=== PATIENT | male | born 1960 | race Caucasian/White ===

== ENCOUNTER 2018-01-07 14:06 | Inpatient (IN) | payer OTHER, MEDICARE ==
[~2018-01-07] VITALS: Ht 177.8 cm; Wt 119.8 kg
--- NOTE | 2018-01-07 16:05 | IP CRISIS DIAG ASSESS PSYCH ---
Diagnostic Assessment Basic Assessment Insurance Authorization: Insurance #1: Insurance name: MED[employer] Phone number: Policy number: [id number] Group number: Authorization number: no Auth required Primary Care Physician: Patient's PCP: Unknown PCP's Phone Number: Patient's Quote: "I went to get help instead of taking the pills." Present Illness: Pt is a 57yo male who is directly admitted from [facility]. He presented there seeking help after filling his prescription for 90 pills of klonopin and expressed that he planned to take them all in a suicide attempt, but went to [facility] for help instead. He identified the trigger of his suicidal thoughts as recently going through a foreclosure and his car being repossessed. Upon arrival to [place] pt became agitated because he realized that half of his belongings were left at [facility]. He was yelling, but was able to be deescalated. [facility] was contacted and they confirmed that his belongings were still there. They informed that they are working on a way to have them brought here. As a result, pt had a difficult time participating in the diagnostic and social history assessments, because he was anxious and continually preoccupied about his belongings. Pt continues to endorse suicidal thoughts, but says he feel safe in the hospital. He reports 1 prior inpt psych admit 10 years ago for a suicide attempt by overdosing on his medication. He denies any hx out outpatient psych treatment stating that his PCP has prescribed his psych meds and his medical medications since 1998 when he was diagnosed with Neurosyphilis. Pt also reports that he was diagnosed with Bipolar in 1998. Pt reports that he is on disability for his Neurosyphillis because it has caused short term memory loss. He says in order to remember what happened earlier in the day he has to write it down. "I can't even remember what I had for breakfast this morning." Pt also reports that he has diabetes and glaucoma. Patient's Address: [address] [place] [address] Other Phone Number: Who Do You Live With? Patient/Self Feel Safe Where You Live? Yes Feel Safe in Your Relationship Yes Marital Status: single Do You Have Children? No Primary Language? Venezuelan Language(s) Spoken At Home: Venezuelan Family/Informants Interviewed: no family/collateral ID'd Toxicology Screen Completed? Yes Results: negative Past History Abuse/Trauma History Trauma History/Current Trauma: Denies Legal History Current Legal Status: none Have you ever been arrested? 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 Psychosocial History Strengths/Capabilities: seeking help Physical Limitations (Interventions): none reported Psychiatric Treatment History Psych Treatment Psychiatric Treatment Yes Inpatient Treatment Yes Outpatient Treatment No Location of Treatment [facility] Reason for Treatment Suicide attempt Dates of Treatment 10 years ago Response to Treatment unknown Diagnosis by History: Per Pt bipolar Risk Factors: access to lethal means, chronic/serious med cond., high anxiety/ distress, history of suicide atmpts, SA/MH hospitalized, isolate/no social support, lives alone, male, limited support Substance Use/Abuse History Drug Use/Abuse minimum 12mo Hx Substances Used/Abused No Substance Abuse Treatment Substance Abuse Treatment Past Substance Abuse [place] No Inpatient Treatment No Sexual History Sexually Active No Education History Highest Level of Education: bachelor's degree Preferred Learning Style: visual, auditory, experiential, "I have to see things and write it down" Current Mental Status Mental Status Orientation: Person, Place, Situation Affect: Anxious, Angry, Depressed, Hopeless, Sad Speech: Loud, Perseveration Neuro-vegetative: Anhedonia, Concentration Poor, Energy Decreased, Helpless, Loss of Interest, Sleep Disturbance Appearance Appearance- Dress/Hygiene: fairly groomed, sporadic eye contact Behaviors Thought Process: WNL Thought Content: WNL Memory: Short term memory Insight: Fair SI/HI Risk Assessment - Minimum 6mo History- Past Suicidal Ideation/Attempts Yes Current Suicidal Ideation/Att Yes Past Homicidal Ideation/Att: No Current Homicidal Ideation/Attempts No Needs/Init TX Plan/Goals: Safety and stabilization of sx, individual and group therapy, med eval AUDIT-C Questionnaire: AUDIT-C Questionnaire: Response Value ETOH use in the past year Never 0 # drinks typical/day Doesn't Drink 0 6 or > drinks per occasion Never 0 Total 0 DSM5/PS Stressors/Medical Prob Diagnosis' (DSM 5, Stressors, Medical): F32.9 Unspecified Depression Current GAF: 25 Comments: Neurosyphylis, diabetes, and glaucoma
[2018-01-07 19:54] VITALS: BP 117/59
--- NOTE | 2018-01-07 20:29 | SOCIAL WORKER SOCIAL HX PSYCH ---
Social History Basic Assessment Insurance Authorization: Insurance #1: Insurance name: MEDICARE [employer] Phone number: Policy number: [id number] Group number: Authorization number: Curr Source of Income/Entitlements: [facility] Primary Care Physician: Patient's PCP: Unknown PCP's Phone Number: Present Problem: Pt is a 57yo male who is directly admitted from [facility]. He presented there seeking help after filling his prescription for 90 pills of klonopin and expressed that he planned to take them all in a suicide attempt, but went to [facility] for help instead. He identified the trigger of his suicidal thoughts as recently going through a foreclosure and his car being repossessed. Upon arrival to [place] pt became agitated because he realized that half of his belongings were left at [facility]. He was yelling, but was able to be deescalated. [facility] was contacted and they confirmed that his belongings were still there. They informed that they are working on a way to have them brought here. As a result, pt had a difficult time participating in the diagnostic and social history assessments, because he was anxious and continually preoccupied about his belongings. Pt continues to endorse suicidal thoughts, but says he feel safe in the hospital. He reports 1 prior inpt psych admit 10 years ago for a suicide attempt by overdosing on his medication. He denies any hx out outpatient psych treatment stating that his PCP has prescribed his psych meds and his medical medications since 1998 when he was diagnosed with Neurosyphilis. Pt also reports that he was diagnosed with Bipolar in 1998. Pt reports that he is on disability for his Neurosyphillis because it has caused short term memory loss. He says in order to remember what happened earlier in the day he has to write it down. "I can't even remember what I had for breakfast this morning." Pt also reports that he has diabetes and glaucoma. Primary Language? Cuban Language(s) Spoken At Home: Cuban Living Situation Rents or Owns Home? rents Feel Safe Where You Are Living Yes Feel Safe in Relationships? 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 No Relationship w/Mother: had a good relationship. Mom of Cancer in 1999 Relationship w/Father: had good relationship. Dad of cancer in 1977 Any Sibling(s)? Yes Sibling's Gender(s)/Age(s): female Sibling 1:, female Sibling 2: Relationship w/Sibling(s): "We have not spoken in 20 years." Relationship w/Friends: "I have 1 best friend Samuel Meraz." Family Psych/Sub Abuse/Add Hx: Reports Aunt had psych treatment but does not know specifics Abuse/Trauma History Trauma History/Current Trauma: Denies Legal History Current Legal Status: none Pending Court Dates: 0 Have you ever been arrested Yes Number of Arrests: 1 Hx of Juvenile Legal Charges? No Hx of Adult Legal Charges? 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 No History of Blackouts? No ADL Limitations: memory loss Walker/Social/Peer Relations has a best friend Samuel Meraz Meaningful Activities: Baseball Childhood Restoration: no christian stated Current Bahai Affiliation: no christian stated Is Spirituality Important to You? no Patient's Ethnicity: Wolof, Slovenian Cultural/Ethnic Issues: none reported Are There Developmental Issues? No Milestones Achieved: fine motor, gross motor Psychiatric Treatment History Psych Treatment Inpatient Treatment Yes Outpatient Treatment No Location of Treatment [facility] Reason for Treatment Suicide attempt Dates of Treatment 10 years ago Response to Treatment unknown Precipitating Factors: Loss of home and car Current Warp Tester: none Treatment of Prior Episodes: 10 years ago Diagnosis: Per Pt bipolar Psychodynamic Issues: none reported Risk Factors: access to lethal means, chronic/serious med cond., high anxiety/ distress, history of suicide atmpts, SA/MH hospitalized, isolate/no social support, lives alone, male, limited support Substance Use/Abuse History Drug Use/Abuse Substance Used/Abused No History Substance Abuse Treatment Substance Abuse Treatment Inpatient Treatment No Sexual History Sexually Active No Education History Highest Level of Education: bachelor's degree Highest Grade Completed: 12 and4 years college Number of College Years: 4 College Degree/Major: physical education Preferred Learning Style: visual, auditory, experiential, "I have to see things and write it down" HX of Learning Difficulties: memory loss Barriers to Learning: memory loss Special Communication Needs: None reported Employment History Employment Disability Not in Labor Force: Disabled 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 of Jobs in Last 5 Years: 0 History Have You Been in The ? No Current Mental Status Mental Status Orientation: Person, Place, Situation Affect: Anxious, Angry, Depressed, Hopeless, Sad Speech: Loud, Perseveration Neuro-vegetative: Anhedonia, Concentration Poor, Energy Decreased, Helpless, Loss of Interest, Sleep Disturbance Appearance Appearance- Dress/Hygiene: fairly groomed, sporadic eye contact Behaviors Thought Process: WNL Thought Content: WNL Memory: Short term memory Insight: Fair SI/HI Risk Assessment Past Suicidal Ideation/Attempts Yes Current Suicidal Ideation/Att Yes Past Homicidal Ideation/Att: No Current Homicidal Ideation/Attempts No Degree of Intent: Plan Danger To: Self Risk Factors: Chronic/serious med cond, High Anxiety/Distress, SA/MH Hospitalization(s), Hx of suicide attempt(s), Isolated/no social suppor, Lives alone, Male Lethality Ratin - Conclusion and Recommendations for treatment - and discharge planning Summary: Pt is a 57yo male who is directly admitted from [facility]. He presented there seeking help after filling his prescription for 90 pills of klonopin and expressed that he planned to take them all in a suicide attempt, but went to [facility] for help instead. He identified the trigger of his suicidal thoughts as recently going through a foreclosure and his car being repossessed. Upon arrival to [place] pt became agitated because he realized that half of his belongings were left at [facility]. He was yelling, but was able to be deescalated. [facility] was contacted and they confirmed that his belongings were still there. They informed that they are working on a way to have them brought here. As a result, pt had a difficult time participating in the diagnostic and social history assessments, because he was anxious and continually preoccupied about his belongings. Pt continues to endorse suicidal thoughts, but says he feel safe in the hospital. He reports 1 prior inpt psych admit 10 years ago for a suicide attempt by overdosing on his medication. He denies any hx out outpatient psych treatment stating that his PCP has prescribed his psych meds and his medical medications since 1998 when he was diagnosed with Neurosyphilis. Pt also reports that he was diagnosed with Bipolar in 1998. Pt reports that he is on disability for his Neurosyphillis because it has caused short term memory loss. He says in order to remember what happened earlier in the day he has to write it down. "I can't even remember what I had for breakfast this morning." Pt also reports that he has diabetes and glaucoma.
--- NOTE | 2018-01-07 23:20 | History & Physical ---
General Information and HPI MD Statement: I have seen and personally examined JOSE ARMANDO YU and documented this H&P. The patient is a 57 year old M who presented with a patient stated chief complaint of [ medical evaluation ]. Source of Information: patient Exam Limitations: clinical condition History of Present Illness: 57-year-old male with past medical history significant for hypertension, diabetes, glaucoma, bipolar disease, "neurosyphilis" diagnosed 1998, treated was directly admitted to Inpatient Psychiatry from [facility] ER. He shouldn' t went there for severe depression and suicidal ideation. Patient had recently refilled his prescription for Klonopin and after going to ER he threatened to take 90 pills of Klonopin to kill himself. Currently he feels severe early depressed, suicidal because of living conditions and finances. Patient moved to [place] 4 months back, came back in November at that time his car was "gone" according to him. According to staff patient was infected in [place] and also injected here in [place] cause not paying rent. Patient states that all his medications were in the car, has not been taking antihypertensives since November. He states that he is on Valsartan 320 mg, hydrochlorothiazide 12.5 mg, verapamil 240 mg, amlodipine 10 mg and metoprolol for his blood pressure, takes on this medication spread out during the day. After he moved to [place] a his primary care physician could not continue to see him once he came back, currently following the new physician based out of [place]. Patient states that he gets forgetful because of "hydrocephalus". Denies any chest pain, palpitations, headache, double vision, blurry vision, abdominal pain , nausea, vomiting, diarrhea, urinary symptoms, loss of consciousness. Patient denies any history of CAD, stroke, heart failure, denies any exertional dyspnea or chest pain. 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 Ambulation: independent IADLs Independent: shopping, housework, finances, food prep, telephone, transportation , medication admin. 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 EENTM: Denies: blurred vision, double vision, visual changes, eye pain, eye drainage, eye tearing, icterus, ear discharge, ear pain, ear redness, hearing changes, nasal congestion, epistaxis, nasal pain, throat pain, throat swelling, mouth pain, tooth pain. Cardiovascular: Denies: chest pain, edema, orthopena, palpitations, peripheral edema, syncope. Respiratory: Denies: cough, hemoptysis, orthopnea, short of breath, sputum production, stridor, wheezing. GI: Denies: abdominal pain, bloating, constipation, diarrhea, distention, bowel incontinence, melena, nausea, bloody stool, changes in stool, vomiting, steatorrhea. Genitourinary: Denies: discharge, dysuria, frequency, hematuria, hesitation, nocturia, pain, urgency. Musculoskeletal: Denies: back pain, gout, joint pain, joint swelling, muscle pain, muscle stiffness, neck pain. Skin: Denies: cysts, change in skin color, change in hair/nails, dryness, erythema, jaundice, lesions, lymphangitis, lumps, moles, rash. Neurological/Psychological: Reports: depressed. Denies: other. Exam & Diagnostic Data Last 24 Hrs of Vital Signs/I&O Vital Signs Date Time Temp Pulse Resp B/P B/P Pulse O2 O2 Flow FiO2 Mean Ox Delivery Rate 01/07 1954 97.1 100 117/59 Physical Exam General Appearance Alert, Oriented X3, Cooperative, No Acute Distress Skin No Rashes, No Breakdown, No Significant Lesion HEENT Atraumatic, PERRLA, EOMI Neck Supple, No JVD, No thryomegaly, +2 Carotid Pulse wo Bruit Lymphatic Cervical nl Cardiovascular Regular Rate, Normal S1, Normal S2, No Murmurs Lungs Clear to Auscultation, Normal Air Movement Abdomen Normal Bowel Sounds, Soft, No Tenderness, No Hepatospenomegaly, No Masses Neurological Exam Findings: Normal Gait, Normal Speech, Strength at 5/5 X4 Ext, Normal Tone, Sensation Intact, Cranial Nerves 3-12 NL, Reflexes 2+ Cranial Nerves II through XII: 3-12 intact Extremities No Clubbing, No Cyanosis, No Edema, Normal Pulses, No Tenderness/ Swelling Vascular Normal Pulses, Pulses Symmetrical Last 24 Hrs of Labs/Cristofer: Patient's lab from [facility] reviewed, WBC 7.1, hemoglobin 12.2, hematocrit 35.6, platelet 202, sodium 140, potassium 4.0, chloride 104, bicarbonate 28, BUN 12, creatinine 1.0, glucose 125, calcium 9.5, U tox negative Diagnostic Data EKG Results Reviewed, normal sinus rhythm Assessment/Plan Assessment: #1 depression and suicidal ideation: Agree with psychiatrist plan #2 hypertension: Patient states that he is on several antihypertensive medications: Valsartan 320 mg daily, verapamil 240 mg daily, hydrochlorothiazide 12.5 mg daily which he had prescription filled. He also had unfilled prescriptions for amlodipine 10 mg daily and metoprolol unknown dosage, did not tile picker yet. Patient states that he takes all this medication spread out throughout the day, may not take sometimes in the blood pressure is low. I doubt compliance with all his medications especially patient's ECG did not show any left ventricular hypertrophy or poor R-wave progression. Would be watchful for blood pressure, losartan, hydrochlorothiazide, and verapamil already ordered #3 glaucoma continue letting no process #4 DM: Continue metformin 1 g by mouth twice a day, check Accu-Cheks daily #5 COPD/asthma: Continue albuterol inhalation as required As Ranked By This Provider Problem List: 1. Depressed bipolar affective disorder 2. Diabetes 3. HTN (hypertension) 4. COPD (chronic obstructive pulmonary disease) 5. Glaucoma Miscellaneous Miscellaneous Documentation Attending Case Discussed With: Alejandro MENDOZA,Medardo Primary Care Physician: El Burnham MD Patient sees these Specialists Primary care physician Level of Patient Care: CARLOS Singer Attending MD Review Statement Attending Statement Attending MD Statement: I personally interviewed the patient and noted H&P
--- NOTE | 2018-01-07 23:39 | Admission Certification ---
Admission Certification Certification Statement - As attending physician, I certify that at the time of - admission, based on clinical presentation, severity of - symptoms, need for further diagnostic testing and - therapeutic interventions, and risk of adverse outcomes - without in-hospital treatment, in my clinical assessment, - this patient requires an acute hospital stay for a minimum - of two nights or longer. I have also considered psychsocial - factors such as support system, advanced age, financial - issues, cognitive issues, and failed out-patient treatments, - past re-admission history, safety of patient, and lack of - compliance as applicable. Specific rationale supporting this admission is: Bipolar disorder with depression and suicidal ideation
[2018-01-08 07:49] VITALS: BP 120/78
[2018-01-08 11:49] VITALS: BP 118/48
[2018-01-08 15:52] VITALS: BP 134/66
--- NOTE | 2018-01-08 16:41 | SOCIAL WORKER PROG NOTE PSYCH ---
Social Work Progress Note Progress Note 1:05pm This public relations writer met with patient. He stated that he went to [facility] due to SI and had a plan to OD on a 90 day supply of Klonopin, which he stated that he turned over to the crisis team at [facility]. Patient stated, "I've been through hell over the last 3 1/2 months" identified stressors: moving, car being repossessed, eviction. He stated that he moved to [place] to live with his best friend, and returned to [place] after being evicted. Patient stated that he has been prescribed Depakote through a PCP, in addition to multiple health issues monitored by physicians. He reported feeling disconnected with family and having no contact with his sisters for the past two years. Patient presented as depressed, tearful and with little eye contact. He is interested in outpatient psychiatric treatment and identified interest in [facility] in [place] as well as [facility]. He denied any current legal issues. He denied HI/AH/VH. He stated that he feels safe on this unit and agreed to immediately inform staff if feeling unsafe. Patient also expressed concerns about his belongings at [facility]. This public relations writer contacted crisis who stated that [facility] have confirmed that they have his belongings. They are unable to transport them to [facility] and will hold them until the patient is able to retrieve them. Patient was informed of this.
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
[2018-01-08 19:56] VITALS: BP 133/65
[2018-01-09 08:33] VITALS: BP 117/49
[2018-01-09 08:42] VITALS: BP 136/53
[2018-01-09 12:13] VITALS: BP 129/55
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
[2018-01-09 15:53] VITALS: BP 119/53
--- NOTE | 2018-01-09 16:05 | SOCIAL WORKER PROG NOTE PSYCH ---
Social Work Progress Note Progress Note 3:03pm This policy writer typist met with patient. Patient stated that he spoke with a patient advocate regarding his concerns about obtaining his belongings from [facility] and felt hopeful about this. He asked that this policy writer typist follow up with the patient advocate. Patient reported some improvement with mood and reported decrease in SI: "It's [SI] not so bad." Patient identified a friend that he may be able to invite for a family meeting and will contact him jessy. Patient will inform this policy writer typist of the outcome of that call. 4:03pm This policy writer typist spoke with patient advocate, Junie Conklin, who stated that [facility] will overnight his belonings to (with anticipated arrival , 01/11, as it was too late to overnight today). Patient was informed of this.
[2018-01-09 20:21] VITALS: BP 123/64
[2018-01-10 08:24] VITALS: BP 132/56
[2018-01-10 12:12] VITALS: BP 113/59
--- NOTE | 2018-01-10 16:08 | CP SOUTH PROGRESS NOTE PSYCH ---
Psych (Inpt) Progress Note Progress Note Include the following elements, when applicable: Involvement in the active treatment of the patient with behavioral observations of the patient and the patient's response to the treatment. Review of the ongoing treatment process in the context of the treatment plan. Indication of how multi-disciplinary staff members are carrying out the treatment plan. Plans for future interventions and recommendations for revision of the treatment plan. Liaison with other physicians/providers. Progress Note: Case and treatment plan discussed in team meeting. Staff reports that the patient is denying suicidal ideation. Affect is slightly irritable. Patient was asked to draw a clock face and he did it in the shape of a alina. Patient seen at 1:15 PM. He was asleep in his room but got up and met with me in office. Patient reports "they said I'm getting my package tomorrow." He is referring to his belongings, being sent down from [facility]. Patient has poor eye contact. Affect is calm and depressed. Reports mood is the same every day, lousy. Rates sad mood and anxiety both 4-5/10. Denies feeling hopeless, worthless or guilty. Does feel helpless. Reports he has suicidal ideation but it is not nearly as bad as when he came in 3 days ago. Denies homicidal ideation. Denies auditory and visual hallucinations and paranoid ideation. Reports sleep has improved with Vistaril. Reports he put half his lunch back in the refrigerator, so appetite is diminished. Reports energy is poor. Tolerating medications well, without complaint. He agrees to increase Lexapro dose to 20 mg daily. Depakote level was low at 34.9 on 01/09/18 but it is not clear that it was at steady-state. We will recheck a Depakote level in the morning. Patient states he could stay with his friend in [facility]. The friend , who had gone to [place], return to [place] and is in [place] and reportedly will be able to put up the patient in a motel as of 01/19/18. I discussed with patient discharge on , tomorrow, and he remarked "you know, as a Medicare beneficiary, I have the legal right to appeal my discharge. " IMPRESSION: Slow progress. Continue present treatment plan. Monitor response to Lexapro dose increase. Await Depakote level tomorrow morning.
--- NOTE | 2018-01-10 17:45 | SOCIAL WORKER PROG NOTE PSYCH ---
Social Work Progress Note Progress Note 10:40am This newswriter met with patient. He reported, "I'm doing better" and is having "lesser thoughts of hurting myself." He reported depression at a 7-8/10 and SI at a 5/10 (with 10 being the most). Patient stated that upon discharge he would like to utilize treatment at [facility] in [place] on [facility]. Patient presents with delayed response to questions and upon being observed by this newswriter, he stated that this is due to thinking carefully about what he wants to say. He appeared depressed. Patient stated that he has a friend that he could call to inquire about scheduling a family meeting and will report back to this newswriter. In addition to possible discharge plans, patient and this newswriter discussed possible discharge dates. He stated that he did not feel ready to discharge tomorrow and was to encouraged to speak with Dr. Allen about discharge dates further.
[2018-01-10 20:05] VITALS: BP 135/51
[2018-01-11 08:54] VITALS: BP 129/57
[2018-01-11 12:26] VITALS: BP 133/52
--- NOTE | 2018-01-11 14:35 | CP SOUTH PROGRESS NOTE PSYCH ---
Psych (Inpt) Progress Note Progress Note Include the following elements, when applicable: Involvement in the active treatment of the patient with behavioral observations of the patient and the patient's response to the treatment. Review of the ongoing treatment process in the context of the treatment plan. Indication of how multi-disciplinary staff members are carrying out the treatment plan. Plans for future interventions and recommendations for revision of the treatment plan. Liaison with other physicians/providers. Progress Note: Case and treatment plan discussed in team meeting. Staff reports that the patient can be a little rude at times. Went to one group yesterday. Has low self-esteem. He is slow to respond. Patient seen with Aracely Le LCSW at 2:07 PM. Reports his package arrived from [facility]. Feels a little better. He does not think that the increase in Lexapro will work and states is just making him more tired. We agreed to reduce dose back to 10 mg daily. States that the Depakote seems to be working. Repeat Depakote level this morning was low at 34.7. Patient agrees to increase dose to 1,250 mg q.h.s. Reports mood is little better. Rates sad mood and anxiety both 5/10. Feels hopeless and worthless. Denies feeling helpless or guilty. States he has suicidal ideation but not as much as when he came in to [facility]. States right now he has nothing to live for. Denies suicide plan and denies suicidal intent. Denies homicidal ideation. Denies auditory and visual hallucinations and paranoid ideation. Reports he slept better with trazodone last night. Reports he is eating half his meals. Energy is low. Tolerating medications but feels tired from Lexapro. Patient gave us the number for Malachi, with whom the patient may stay after discharge. IMPRESSION: Slow progress. Continue present treatment plan. We are anticipating discharge tomorrow although the patient seems invested in staying here through Monday. I do not believe he is at imminent risk for suicide. We will try to reach his friend Malachi for collateral and to discuss housing and safety plan. Patient plans to contest discharge as his right as a Medicare beneficiary.
[2018-01-11 15:56] VITALS: BP 124/54
--- NOTE | 2018-01-11 17:01 | SOCIAL WORKER PROG NOTE PSYCH ---
Social Work Progress Note Progress Note 9:08am This mortgage or loan underwriter contacted patient's previous PCP office (Dr. Arthur Rasmussen) to request a medication list. This mortgage or loan underwriter spoke with Daylin at the office who stated that all records were sent to [facility] in [place] when the patient moved to [place] in September of 2017. She stated that she would not be able to provide any records. This mortgage or loan underwriter relayed the message to Dr. Allen who stated that additional follow up (with [facility]) was not necessary. 2:06pm Dr. Allen and this mortgage or loan underwriter met with the patient. He reported that he had received his belongings. He reported feeling tired due to the increased Lexapro dose. Patient and Dr. Allen discussed medication questions, concerns and doses. Patient reported his mood as "a little better." He reported decreased SI since he was admitted and denied any plan, means or intent. He denied HI/AH/VH. Patient stated that he has been eating about half of his meals and experiencing decreased energy. Patient stated that he will be filing an appeal with Medicare regarding discharge. He was agreeable to signing an KEVIN for his friend Malachi ) however did not know his last name. He stated that he plans to live with Malachi upon discharge. Patient approached this mortgage or loan underwriter following the meeting and provided this mortgage or loan underwriter with the [facility] appeal number: [id number]. This mortgage or loan underwriter received a call from at Medicare informing that an appeal has been initiated. This mortgage or loan underwriter spoke with Pawan who will send a fax to this mortgage or loan underwriter regarding the appeal. This mortgage or loan underwriter spoke with Maria Fernanda in case management who stated that she received the fax. This mortgage or loan underwriter was contacted by Junie Conklin who spoke with Luanne at [facility] requesting to speak with the patient regarding the appeal. Patient called Luanne at [phone]. Edward Dumas and Dr. Allen were informed.
[2018-01-11 19:43] VITALS: BP 130/70
[2018-01-12 08:13] VITALS: BP 133/50
--- NOTE | 2018-01-12 12:05 | SOCIAL WORKER PROG NOTE PSYCH ---
See Addendum Social Work Progress Note Progress Note This continuity writer connected to [facility] at [address] [place] [address], [place] [address] , they have only walk in intakes for mental health IOP/OP daily. They can see him Monday 10-5pm, Mon,Mon or Mon 8:30-3p or 9:30-3p. I also left a message for Luanne, regarding the appeal for discharge giving him all the contact numbers he would need today and tomorrow for myself and the pt, i.e. nursing station contact. I met with pt, he offers he can take CT transit and prefers to return to the [facility], as opposed to [facility]. We had a conversation about ongoing mental health treatment and the benefits of not only working with PCP but being engaged in IOP, pt states as long as he doesn't have co-pays he would be interested in IOP, otherwise would work with outpatient providers. I also left a message for [facility], as he has been there over 10 years ago. If he wants to return to [facility], he has an intake for Monday at 2:30pm, currently he prefers not to go to this area, and I can cancel it if need be. Pt denies si/hi/ah/vh. Faxed a mini mental status and Dr. Allen note to medicare appeals today as well.
[2018-01-12 12:13] VITALS: BP 121/47
--- NOTE | 2018-01-12 13:13 | CP SOUTH PROGRESS NOTE PSYCH ---
Psych (Inpt) Progress Note Progress Note Include the following elements, when applicable: Involvement in the active treatment of the patient with behavioral observations of the patient and the patient's response to the treatment. Review of the ongoing treatment process in the context of the treatment plan. Indication of how multi-disciplinary staff members are carrying out the treatment plan. Plans for future interventions and recommendations for revision of the treatment plan. Liaison with other physicians/providers. Progress Note: Case and treatment plan discussed in team meeting. Staff reports that the patient is denying suicidal ideation. Seemed organized when talking on the phone. Patient has appealed discharge to Medicare and documents were sent to Medicare. Patient seen at 1:03 pm. He was asleep in his room but got up and met with me in office. Doesn't like Depakote 1,250 mg qhs. "I don't want to go around feeling like a walking zombie." I will lower Depakote back to 1,000 mg qhs per patient's request. Appears awake and alert. Affect is calm and blunted. There is some response latency, unchanged. Mood "I'm good." Feels sad at 5/10. Rates anxiety 3/10. Feels helpless but not hopeless, worthless or guilty. Denies suicidal and homicidal ideation. Denies auditory and visual hallucinations and paranoid ideation. Sleep: too much. Appetite: ate half his lunch. Energy low. Tolerating medications except for fatigue. IMPRESSION: Patient has achieved maximum hospital benefit. Okay for discharge today pending approval by Medicare appeal process.
[2018-01-12 16:23] VITALS: BP 108/50
--- NOTE | 2018-01-12 17:06 | SOCIAL WORKER PROG NOTE PSYCH ---
Social Work Progress Note Progress Note Spoke with Xavi, at [facility], she is on the advocacy of the patient side, and informed me this case is still being reviewed with an expectation of having decision made by Monday in terms of the patients discharge plan.
[2018-01-12 19:50] VITALS: BP 134/49
--- NOTE | 2018-01-13 00:42 | Event Note ---
Event Note Event Note: I was asked to assess patient's lipid panel (done on January 09). Results show: T. Chol 233, TG 337, LDL 133 and HDL 33. Patient is a diabetic on oral hypoglycemic agents and his A1c is 7.6. His BMI is 38. I have initiated Lipitor 20 mg daily. He needs counseling for weight reduction and diet control.
[2018-01-13 07:57] VITALS: BP 138/59
[2018-01-13 12:08] VITALS: BP 149/59
--- NOTE | 2018-01-13 13:28 | CP SOUTH PROGRESS NOTE PSYCH ---
Psych (Inpt) Progress Note Progress Note Include the following elements, when applicable: Involvement in the active treatment of the patient with behavioral observations of the patient and the patient's response to the treatment. Review of the ongoing treatment process in the context of the treatment plan. Indication of how multi-disciplinary staff members are carrying out the treatment plan. Plans for future interventions and recommendations for revision of the treatment plan. Liaison with other physicians/providers. Progress Note: Stated that there is not really much to say, he is waiting for his appeal from medicare. Stated that he is not as bad as when he came in in terms of thoughts to harm himself. Kept asking where is this going, whats the point with head down and did not want to speak with me. I explained to him that medicare decision or not, it was important for me to individually assess his risk of harm to self/others and need for admission, and that it would be helpful it he would speak with me. 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 He did not answer questions about suicide, depression apart from saying Im not as bad as I was when I came in here despite me attempting to ask several times. Update 7pm - later in the afternoon, was informed that medicare denied his claim. I let him know and he stated that there is a 2nd medicare appeal process and he plans to do that. I gave him the medicare # and his case# and informed him that medicare was open until 3pm and he should call before it closes; ten mintues later he appeared to be on the phone. Mr. Bruno was informed that if disharged he would be provided with an appt on Monday, and that we would discuss his mental status tmr and re-evaluate his need for admission tmr. MSE: annoyed, irritated older man, head down with poor eye contact. speech is normal. Affect is constricted and mood is neutral. Thought process appears very goal oriented to seek ongoing hospitalization, though he is unable to discuss with me at length why. Content is positive for depression, at times contingent SI but not with me. No AH and no evidence of psychotic thought process. Insight and judgment are both fair. A: 57 year old gentleman with a history of depressive sx, vague SI, planned for discharge earlier this week but appealed to medicare in order to continue admission for some time, likely in part to seek respite. He is annoyed but otherwise goal oriented and making his needs met. Plan: He will have his 2nd appeal. Tmr we will discuss his mental status and whether he is discharge-able.
--- NOTE | 2018-01-13 13:49 | SOCIAL WORKER PROG NOTE PSYCH ---
Social Work Progress Note Progress Note Spoke with Medicare [phone] and gave them case # [id number] regarding Markus, they have denied his appeal for discharge and as of 01/14/18 at noon, he will be responsible for payment of his stay. The pt lives in a hotel, and requested psychiatric services in [facility], he has an intake at the [facility] at [address] [place] [address], [place] [address] , they have only walk in intakes for mental health IOP/OP daily. They can see him Monday 10-5pm, Mon,Mon or Mon 8:30-3p or 9:30-3p. The pt states he travels via [place] and is comfrtable with that.
[2018-01-13 16:06] VITALS: BP 146/65
[2018-01-13 17:54] VITALS: BP 142/57
--- NOTE | 2018-01-13 18:21 | SOCIAL WORKER PROG NOTE PSYCH ---
Social Work Progress Note Progress Note SW met with patient this evening to check in with him regarding his understanding of his 2nd Appeal with Medicare. Pt confirms that yes he is in the process of a 2nd Appeal with Medicare. Pt confirms that he was told by Medicare and understands that he is authorized through 01/14/18 at noon and that if his 2nd appeal is denied he will be responsible to pay for his stay in [facility] from 01/14 after 12pm.
[2018-01-13 20:11] VITALS: BP 142/56
[2018-01-14 07:56] VITALS: BP 146/58
--- NOTE | 2018-01-14 11:00 | CP SOUTH PROGRESS NOTE PSYCH ---
See Addendum Psych (Inpt) Progress Note Progress Note Include the following elements, when applicable: Involvement in the active treatment of the patient with behavioral observations of the patient and the patient's response to the treatment. Review of the ongoing treatment process in the context of the treatment plan. Indication of how multi-disciplinary staff members are carrying out the treatment plan. Plans for future interventions and recommendations for revision of the treatment plan. Liaison with other physicians/providers. Progress Note: Met with Mr. Bruno this morning, he was calm and cooperative, and apologized for his behavior yesterday. He stated that he is in a much better place than he was yesterday and even earlier in the week. He stated that he had no recent thoughts to harm himself or anyone else and had no recent plans. He was frustrated about the bus situation, despite having bus fare, stating that the buses are really hard on Sundays. I explained to him that due to his consistent improvement in mood, lack of suicidal ideation and future focus of going to his appt, I felt it was appropriate clinically to discharge him today, and that if it remained clinically appropriate, medicare would likely deny his 2nd appeal and he would have to pay the large sum of money for his admission from 12pm until his discharge tmr. He continued to state that he was able to pay this and that he would prefer to be discharged tmr. however, we discussed possibility of a cab and he agreed to this, stating this would make him able to leave today comfortably. We discussed his future plans, he joked about not having another blizzard, stated that he spends much of his day watching sports and walking, and that he is going to resume his outpatient care and go to his appt tmr morning. He did not appear to be psychotic, depressed or manic. His mental status appeared stable as it has been over the last several days, excepting yesterday when he appeared frustrated with his medicare appeal. He has clear motivation to seek admission for another day, ie to avoid the difficult bus schedule over the weekend. Even yesterday we had a misunderstanding when I misspoke about his discharge and appt date, and he believed that discharge would be on Monday, he appeared to perk up, before I corrected myself. These are consistent with 2ndary gain to avoid personal discomfort rather than worsening depression or suicidal thinking. Rec: Mr. Bruno has significant risk factors, ie recent depressive thoughts, past remote suicide attempt, social isolation, which increase his risk of suicide and harm to others. despite this, he has been future oriented, focused on getting his needs met, his affect has been more full and reactive, and he appears to have stabilized sufficiently such that there is no acute risk of harm to self/others and he no longer meets a hospital level of care. Stable for discharge, will discuss how to safely discharge him with staff.
[2018-01-14 12:20] VITALS: BP 124/48
[2018-01-14 13:10] VITALS: BP 127/55
[2018-01-14 15:37] VITALS: BP 111/48
[2018-01-14 19:53] VITALS: BP 141/61
[2018-01-15 08:07] VITALS: BP 135/61
[2018-01-15 12:09] VITALS: BP 137/54
--- NOTE | 2018-01-15 12:44 | CP SOUTH PROGRESS NOTE PSYCH ---
Psych (Inpt) Progress Note Progress Note Laboratory Tests 01/15 Valproic Acid (50 - 120 ug/mL) 37.4 L Vital Signs Date Time Pulse B/P B/P Pulse O2 Flow FiO2 01/15 1209 69 137/54 01/15 0846 135/61 focused on discharge, calm and cooperative, denied thoughts to harm himself or anyone else Thought process appears goal oriented depressed mood but denied feeling hopeless or thinking of suicide No AH and no evidence of psychotic thought process. A: 57 year old gentleman who was admitted to inpatient psych with vague SI, Plan: no medication changes will discharge as soon as appeal process is adjudicated no medication
[2018-01-15] MEDS ORDERED: TOPROL XL100 M1 PO (15:44)
[2018-01-15] MEDS ORDERED: LATANOPROST2.5 ML OPH (15:44)
[2018-01-15] MEDS ORDERED: CALAN SR240 MG PO (15:44)
[2018-01-15] MEDS ORDERED: ATORVASTATIN CA20 M1 PO (15:44)
[2018-01-15] MEDS ORDERED: VENTOLIN HFA18 GM INH (15:44)
[2018-01-15] MEDS ORDERED: METFORMIN HCL1000 M1 PO (15:44)
[2018-01-15] MEDS ORDERED: COZAAR100 M1 PO (15:44)
[2018-01-15] MEDS ORDERED: LEXAPRO10 M1 PO (15:44)
[2018-01-15] MEDS ORDERED: HYDROCHLOROTH12.5 M3 PO (15:44)
[2018-01-15] MEDS ORDERED: TRAZODONE HCL50 M1 PO (15:44)
[2018-01-15] MEDS ORDERED: DIVALPROEX SOD500 M2 PO (15:44)
[2018-01-15] MEDS ORDERED: NICOTINE PATCH1 EAC2 TOP (15:44)
--- NOTE | 2018-01-15 15:46 | Patient Discharge Instructions ---
Psych Discharge Inst General Discharge Information Reason for Admission: admitted on 01/07/18 on a PEC from [facility] ER due to feeling tempted to overdose with #90 Klonopin 0.5 mg pills. Psy Discharge Primary Diag+ Bipolar Disorder Psy Discharge Secondary Diag+ Mild Neurocognitive Disor Summary Tests/Major Procedures Lab Cholesterol 233 MG/DL H 01/09/18 0620 HDL Cholesterol 33 mg/dL L 01/09/18 0620 Hemoglobin A1c 7.6 % H 01/09/18 0620 LDL Cholesterol, Calc 133 mg/dL H 01/09/18 0620 Triglycerides 337 mg/dL H 01/09/18 0620 Valproic Acid 37.4 ug/mL L 01/15/18 0620 Studies Pending at DC: none Patient Instructions Contact Information Your Psychiatrist on [facility] was Efraín Cabrera MD * If you are experiencing an emergency related to this hospitalization, please call [phone] to contact the treating psychiatrist or the psychiatrist-on- call. * To Request a copy of your medical records, please contact the Medical Records Department at [phone]. * To request results of studies pending at the time of discharge, please call [phone]. * Continue your Medications until directed to stop by your Healthcare provider. General Medication Information Please continue to take your new medications and your continued home medications , unless otherwise indicated on your discharge medication list, or unless directed by your MD or [facility] to stop them. Special Instructions Diet Diabetic Activity As Tolerated - Tobacco Use Treatment Offered Post DC Medications Offered: Script Given-See Med List Post DC Tobacco Treatment Plan: Refused Tobacco Tx Pgm - EtOH/Drug Use D/O Treatment Offered Post DC Medications Offered: NA-No EtOH/Drug Use D/O Post DC EtOH/SubAbuse TX Plan: NA-No EtOH/Drug Use D/O Metabolic Screening Not Applicable, patient not on a neuroleptic. Advance Directives Does the Patient have Medical Advance Directives No/Refused further info Does Pt have Psychiatric Advance Directives? No/Refused further info Does Patient have a Designated Surrogate Decision Maker: No Information About Psychiatric Advance Directives Provided? Refused Discharge Plan Post Hospital [facility]
--- NOTE | 2018-01-15 16:43 | DISCHARGE SUMMARY REPORT-PSYCH ---
Visit Information Visit Dates/Diagnosis' Admission Date: 01/07/18 Discharge Date: 01/15/18 Reason for Admission: admitted on 01/07/18 on a PEC from [facility] ER due to feeling tempted to overdose with #90 Klonopin 0.5 mg pills. Psy Discharge Primary Diag: Bipolar Disorder Psy Discharge Secondary Diag: Mild Neurocognitive Disor Hospital Course Course Allergies: Coded Allergies: amoxicillin (From AUGMENTIN) (GI DISCOMFORT 01/07/18) clavulanic acid (From AUGMENTIN) (GI DISCOMFORT 01/07/18) Uncoded Allergies: SEAFOOD (HIVES 01/07/18) Discharge HBIPS - Tobacco Use Treatment Offered - EtOH/Drug Use D/O Treatment Offered Metabolic Screening - Screen if on a Neuroleptic Medication - Metabolic screening should include: - Blood Pressure, BMI, Glucose or Hgb A1c, & a - Lipid profile from within the past 365 days. Discharge Instructions General Discharge Information Discharge Diet Diabetic Discharge Activity As Tolerated Referrals Ordered Referrals Provider Referral 01/16/18 For Groups: [[facility]] [facility] [address], [place] [phone] Patient will utilize walk-in hours on 01/16/18, from 8:30am-3pm, in interest of beginning their IOP. Walk in hours are as follows: -Mondays: 10am-5pm -Tuesdays, Wednesdays and Fridays: 8:30am-3pm -: 9:30am-3pm Provider Referral 01/17/18 For Groups: [El Burnham MD] Dr. El Burnham [address] [place], [place] [phone] Appointment: 01/17/18, at 9am Provider Referral 01/17/18 For Providers: [[facility]] For Groups: [Post Discharge Smoking Cessati] Post Discharge Smoking Cessation Group [address] [phone] Groups meet every other Monday at 4pm. Next Group: 01/17/18, at 4pm Prescriptions Start taking the following new medications: Albuterol Sulfate (Ventolin Hfa) 90 MCG HFA.AER.AD 2 Puff Inhale through mouth EVERY 4 HOURS NEEDED as needed for SHORTNESS OF BREATH Qty = 1 No Refills Comments: Last Taken:NOT ADMIN. IN HOSPITAL Time: Nicotine (Nicotine Patch) 14 MG/24 HOUR PATCH.TD24 14 Milligram On the skin DAILY Qty = 14 No Refills Comments: Last Taken:01/15/18 Time:0846 Atorvastatin Calcium (Atorvastatin Calcium) 20 MG TABLET 20 Milligram ORAL 5 PM Qty = 30 No Refills Comments: Last Taken:01/14/18 Time:1640 Metoprolol Succ XL (Toprol XL) 100 MG TAB.ER.24H 100 Milligram ORAL AT BEDTIME Qty = 30 No Refills Comments: Last Taken:01/14/18 Time:2125 Verapamil Sr (Calan Sr) 240 MG TABLET.ER 240 Milligram ORAL DAILY Qty = 30 No Refills Comments: Last Taken:01/15/18 Time:0846 Losartan (Cozaar) 100 MG TABLET 100 Milligram ORAL DAILY Qty = 30 No Refills Comments: Last Taken:01/15/18 Time:46 Divalproex Sodium (Divalproex Sodium) 500 MG TABLET.DR 1,000 Milligram ORAL AT BEDTIME Qty = 60 No Refills Comments: Last Taken:01/14/18 Time:2125 Escitalopram Oxalate (Lexapro) 10 MG TABLET 10 Milligram ORAL DAILY @8 AM Qty = 30 No Refills Comments: Last Taken:01/15/18 Time:0846 Trazodone HCl (Trazodone HCl) 50 MG TABLET 50 Milligram ORAL AT BEDTIME as needed for SLEEP Qty = 30 No Refills Comments: Last Taken:01/13/18 Time:2128 Hydrochlorothiazide (Hydrochlorothiazide) 12.5 MG CAPSULE 12.5 Milligram ORAL DAILY Qty = 30 No Refills Comments: Last Taken:01/15/18 Time:0846 Latanoprost (Latanoprost) 0.005 % DROPS 1 Drop In the eye AT BEDTIME Qty = 1 No Refills Comments: Last Taken:01/14/18 Time:2126 Metformin HCl (Metformin HCl) 1,000 MG TABLET 1,000 Milligram ORAL 0800,1700 Qty = 60 No Refills Comments: Last Taken:01/15/18 Time:0846 Studies Pending at Discharge none
--- NOTE | 2018-01-15 18:10 | SOCIAL WORKER PROG NOTE PSYCH ---
Social Work Progress Note Progress Note This check writer salesperson met with patient. Treatment to utilize upon discharge was discussed with the patient. Patient stated that he would like to follow up with [facility] in [place] for IOP level of care as well as his primary care provider for medication management. He stated that he was willing to utilize a prescriber at [facility] if they provided one. Patient stated that he is no longer interested in [facility] and that this check writer salesperson did not need to follow up with them regarding their outpatient treatment. Patient described his mood as "good" today and denied SI/HI/AH/VH. Regarding housing, patient stated that he does not have an option of living with a friend. When this check writer salesperson asked about his friend Malachi and patient's report last week that he could stay with him , patient stated that this was not accurate. Patient stated that he plans on returning to the [facility] on [address] ([employer]) where he had previously lived. Patient was informed that this check writer salesperson was expecting a call regarding the appeals process that the patient initiated last week and would inform the patient once infomration became available. This check writer salesperson spoke with Nancy at [facility]. She provided the intake walk in hours (Mon 10-5; , Mon and Mon 8:30-3; 9:30-3pm) and stated that intake appointments cannot be made and are on a walk in basis only. She stated that they have a provider, however, the patient may not be given an appointment until the end of January. She stated that they have a primary care office, however, cannot guarantee that psychiatric medications will be refilled. This check writer salesperson spoke with Arabella at the patient's primary care provider, Dr. El Burnham's office, ([phone]) and an appointment was scheduled for at 9am. This check writer salesperson spoke with Dr. Cabrera regarding the medication concerns and patient's access to a provider. Dr. Cabrera spoke wtih Dr. Burnham and the patient will be provided with one month of medications and follow up with Dr. Burnham as well. This check writer salesperson returned a call from [facility] and spoke with Cris, patient advocate, at [facility] ([phone]) at 1:16pm as Luanne, the patient advocate assigned to the case, was not available. Upon her request, she was provided with discharge information ([facility] and the appointment scheduled with the patient's primary care provider). This check writer salesperson received a call from [facility] at 2:06pm today regarding the 2nd appeal decision, stating that their physician reviewer agrees with terminating services. Last covered day was 01/13/18 with liability on 01/14/18. This check writer salesperson returned the call ([phone]) and spoke with Prosper who confirmed the message. This check writer salesperson also spoke with Riana at 4:17pm to confirm that no additional information was needed. Amir confirmed that discharge may continue and that they have the discharge information in their records. He stated that no additional information needs to be provided at this time. Patient was informed of this decision. He stated that he was ready to discharge and agreeable to the discharge plan of going to [facility] tomorrow between 8:30am and 3pm for an intake as well as attending the primary care appointment with Dr. El Burnham on 01/17/18 at 9am. Patient also accepted the information for the smoking cessation group at with next group on 01/17/18 at 4pm. This check writer salesperson and patient discussed a safety plan in which the patient would "go to ER" and also agreed to utilize crisis numbers and warm line numbers. Patient denied having any suicidal thoughts, plans or intent. He denied HI/AH/VH. He stated that he plans to take the bus to [place] on [address] in [place], [place], which he stated is easy access to a bus line so he can attend his appointments. Patient accepted the primary care appointment and walk in hours at [facility], which he plans to utilize tomorrow. He was provided with a bus schedule and bus fare. Faxed Referral(s) 1 [facility] Transition of Care Documents sent: Health Summary Faxed to: [facility] attn: Elsa Fax #: [phone] Faxed by: Alejandra Le LCSW Date faxed: 01/15/18 Time Faxed: [phone] Comment: fax number confirmed by Cara with request to attn to Elsa Faxed Referral(s) 2 Referred To: Dr. El Burnham Transition of Care Documents sent: Health Summary Faxed to: Dr. El Burnham Fax #: [phone] Faxed by: Alejandra Le LCSW Date faxed: 01/15/18 Time Faxed: [phone] Comment: Fax number provided by Klaudia at the doctor's office
== END 2018-01-15 17:20 | DRG 885 ==
LOC: CP SOUTH 14:06
PROVIDERS: Psychiatry & Neurology Psychiatry
DX: F31.9 Bipolar disorder, unspecified (principal); F09 Unspecified mental disorder due to known physiological condition
CPT/HCPCS: 36415; 93005; 93010; J3490; J7508